=== PATIENT | male | born 1950 | race Caucasian/White ===

== ENCOUNTER 2017-01-15 16:48 | Emergency (ER) | payer MEDICARE, BC, OTHER ==
[2017-01-15 17:52] LABS: APPEARANCE HAZY (CLEAR); BILIRUBIN NEGATIVE (NEGATIVE); COLOR YELLOW (YELLOW); GLUCOSE NEGATIVE (NEGATIVE); KETONE NEGATIVE (NEGATIVE); NITRITE NEGATIVE (NEGATIVE); PH 7.5 (5.0-6.0); PROTEIN TRACE mg/dL (NEGATIVE); UROBILINOGEN NORMAL (NORMAL)
== END 2017-01-15 19:25 | disposition home or self-care (01) ==
LOC: D.ER 16:48
PROVIDERS: Emergency Medicine
DX: M54.5 Low back pain (principal); M25.552 Pain in left hip